=== PATIENT | female | born 1980 | race Caucasian/White ===

== ENCOUNTER → 2017-09-09 | Outpatient (CLI) | payer OTHER | LOC: BMCIMAGING 10:44 | PROVIDERS: ATTEND Podiatrist Foot & Ankle Surgery | DX: S90.851A Superficial foreign body, right foot, initial encounter (principal) ==

== ENCOUNTER → 2017-09-23 | Outpatient (CLI) | payer OTHER | LOC: FIMAGING 15:29 | PROVIDERS: ATTEND Podiatrist Foot & Ankle Surgery | DX: S90.851A Superficial foreign body, right foot, initial encounter (principal) ==